=== PATIENT | female | born 2000 | race Hispanic/Latino ===

== ENCOUNTER → 2018-09-18 | Outpatient (REF) | payer OTHER | LOC: M SFHCLERA 16:44 | PROVIDERS: ATTEND Physician Assistant | DX: N39.0 Urinary tract infection, site not specified (principal) ==

== ENCOUNTER 2018-10-10 15:17 | Emergency (ER) | payer OTHER ==
[~2018-10-10] VITALS: Ht 157.5 cm; Wt 57.3 kg
[2018-10-10] MEDS ORDERED: PHEN200T22 PO (15:26)
[2018-10-10] MEDS ORDERED: NEXP1IMP SC (15:26)
[2018-10-10 17:17] VITALS: BP 121/58
[2018-10-10] MEDS ORDERED: CIPR-249 PO (17:23)
[2018-10-10] MEDS ORDERED: PYRI1TAB5 PO (17:23)
[2018-10-10] MEDS ORDERED: PHENAZOPYRIDINE 100 MG TAB PO ONE (17:30)
[2018-10-10] MEDS ORDERED: CIPROFLOXACIN 500 MG TAB PO ONE (17:30)
[2018-10-10 21:32] LABS: CHLAMYDIA DNA AMPLIFICATION NEGATIVE (NEGATIVE); GC DNA AMPLIFICATION NEGATIVE (NEGATIVE)
== END 2018-10-10 17:33 | disposition home or self-care (01) ==
LOC: M ED 15:17
DX: N30.90 Cystitis, unspecified without hematuria (principal); Z88.0 Allergy status to penicillin; Z79.3 Long term (current) use of hormonal contraceptives

== ENCOUNTER → 2019-01-06 | Outpatient (REF) | payer BC, OTHER ==
[~2019-01-06] MED LIST: CIPR-249 PO; NEXP1IMP SC; PHEN200T22 PO; PYRI1TAB5 PO
[2019-01-07 13:08] LABS: CHLAMYDIA DNA AMPLIFICATION NEGATIVE (NEGATIVE); GC DNA AMPLIFICATION NEGATIVE (NEGATIVE)
== END ==
LOC: M SFHCLERA 13:52
PROVIDERS: ATTEND Nurse Practitioner Family
DX: R30.0 Dysuria (principal)

== ENCOUNTER → 2019-05-02 | Outpatient (REF) | payer BC, OTHER ==
[2019-05-02 19:10] LABS: APPEARANCE, URINE CLEAR (CLEAR); BACTERIA, URINE AUTO NEGATIVE (NEGATIVE); BILIRUBIN, URINE AUTO NEGATIVE (NEGATIVE); BLOOD, URINE BLOOD NEGATIVE (NEGATIVE); COLOR, URINE YELLOW (YELLOW); GLUCOSE, URINE (UA) AUTO NEGATIVE (NEGATIVE); KETONE, URINE AUTO NEGATIVE (NEGATIVE); LEUKOCYTE ESTERASE, URINE AUTO NEGATIVE (NEGATIVE); NITRITE, URINE AUTO NEGATIVE (NEGATIVE); PROTEIN, URINE AUTO NEGATIVE (NEGATIVE); RBC, URINE AUTO 1 /HPF (0-3); SPECIFIC GRAVITY URINE AUTO 1.006 (1.002-1.035); SQUAMOUS EPITHELIAL CELL UR AU 0 /HPF (0-6); UROBILINOGEN, URINE AUTO 0.2 mg/dL (0.0-2.0); WBC, URINE AUTO 1 /HPF (0-3)
== END ==
LOC: M SMT 16:52
PROVIDERS: ATTEND Nurse Practitioner Family
DX: N39.0 Urinary tract infection, site not specified (principal)

== ENCOUNTER → 2019-05-05 | Outpatient (CLI) | payer BC, OTHER ==
--- NOTE | 2019-05-06 02:52 | REP ---
Clinical: Frequent urinary tract infection. Technique: Real time henry scale ultrasound examination using curved array transducer. Findings: Bilateral kidneys are normal in contour, size, echogenicity without hydronephrosis, nephrolithiasis, cystic or renal mass lesion. No perinephric fluid collection. Right kidney measures 10.1 x 5.6 x 4.5 cm. Left kidney measures 9.2 x 5.4 x 5.3 cm. Bladder is normal in appearance without wall thickening or mass lesion. Bilateral ureteral jets are identified. Prevoid bladder measures 341 ml. Postvoid bladder measures 20 ml. Postvoid residual equals 6%. Impression: Normal renal and bladder ultrasound. Electronically Signed by Loi Roa MD 05/06/2019 02:44 A
== END ==
LOC: M RAD 15:01
PROVIDERS: ATTEND Nurse Practitioner Family
DX: N39.0 Urinary tract infection, site not specified (principal)

== ENCOUNTER → 2019-11-04 | Outpatient (REF) | payer BC, OTHER ==
[~2019-11-04] MED LIST changes: +MACR100C43 PO
== END ==
LOC: M SFHCLERA 18:51
PROVIDERS: ATTEND Physician Assistant
DX: R30.0 Dysuria (principal)

== ENCOUNTER 2019-11-07 06:01 | Emergency (ER) | payer BC, OTHER ==
[~2019-11-07] VITALS: Ht 157.5 cm; Wt 62.8 kg
[~2019-11-07 06:01] MED LIST changes: -MACR100C43 PO
[2019-11-07 07:11] LABS: BASO # 0.1 10^3/uL (0.0-0.2); BASO % 0.9 % (0.0-1.0); EOS # 0.1 10^3/uL (0.0-0.5); EOS % 1.1 % (0.0-3.0); HEMATOCRIT 40.2 % (36.0-47.0); HEMOGLOBIN 13.1 g/dl (12.0-15.5); LYMPH # 1.9 10^3/uL (1.5-5.0); LYMPH % 33.2 % (24.0-44.0); MEAN CORPUSCULAR HEMOGLOBIN 28.5 pg (27.0-33.0); MEAN CORPUSCULAR HGB CONC 32.6 g/dl (32.0-36.5); MEAN CORPUSCULAR VOLUME 87.6 fl (80.0-96.0); MONO # 0.4 10^3/uL (0.0-0.8); MONO % 7.3 % (0.0-5.0); NEUTROPHILS # 3.2 10^3/uL (1.5-8.5); NEUTROPHILS % 57.3 % (36.0-66.0); PLATELET COUNT, AUTOMATED 256 10^3/uL (150-450); RED BLOOD COUNT 4.59 10^6/uL (4.00-5.40); WHITE BLOOD COUNT 5.6 10^3/uL (4.0-10.0)
[2019-11-07 07:19] LABS: APPEARANCE, URINE MANUAL HAZY (CLEAR); COLOR, URINE MANUAL ORANGE (YELLOW); PROTEIN, URINE MANUAL NEGATIVE (NEGATIVE); SPECIFIC GRAVITY,URINE MANUAL 1.015 (1.002-1.035)
[2019-11-07 07:20] LABS: BILIRUBIN, URINE MANUAL OBSCURED (NEGATIVE); BLOOD URINE MANUAL TRACE (NEGATIVE); GLUCOSE, URINE (UA) MANUAL NEGATIVE (NEGATIVE); KETONE, URINE MANUAL NEGATIVE (NEGATIVE); LEUKOCYTE ESTERASE, URINE MAN POSITIVE (NEGATIVE); NITRITE, URINE MANUAL OBSCURED (NEGATIVE); UROBILINOGEN, URINE MANUAL OBSCURED mg/dl (NORMAL)
[2019-11-07 07:24] LABS: WBC, URINE 30-40 /hpf (0-3)
[2019-11-07 07:25] LABS: BACTERIA, URINE MOD AMOUNT; HYALINE CAST, URINE NONE SEEN /lpf (0-1); MUCUS, URINE SMALL AMOUNT (NEGATIVE); SQUAMOUS EPITHELIAL CELL URINE MOD AMOUNT /hpf (SMALL AMT)
[2019-11-07 07:36] LABS: BLOOD UREA NITROGEN 11 MG/DL (7-18); CALCIUM LEVEL 9.2 MG/DL (8.5-10.1); CARBON DIOXIDE LEVEL 25 MEQ/L (21-32); CHLORIDE LEVEL 106 MEQ/L (98-107); CREATININE FOR GFR 0.82 MG/DL (0.55-1.30); GLOMERULAR FILTRATION RATE > 60.0 (>60); GLUCOSE, FASTING 100 MG/DL (70-100); SODIUM LEVEL 139 MEQ/L (136-145)
[2019-11-07 07:41] LABS: HCG, SERUM QUALITATIVE NEGATIVE (NEGATIVE)
[2019-11-07] MEDS ORDERED: MACR100C43 PO (08:26)
[2019-11-07 08:33] VITALS: BP 134/74
== END 2019-11-07 08:34 | disposition home or self-care (01) ==
LOC: M ED 06:01
DX: N39.0 Urinary tract infection, site not specified (principal); Z88.0 Allergy status to penicillin; Z79.899 Other long term (current) drug therapy

== ENCOUNTER 2019-11-19 18:42 | Inpatient (IN) | payer BC, OTHER ==
[~2019-11-19] VITALS: Ht 157.5 cm; Wt 61.4 kg
[~2019-11-19 18:42] MED LIST changes: +MACR100C43 PO
[2019-11-19 19:38] LABS: HEMATOCRIT 38.2 % (36.0-47.0); HEMOGLOBIN 12.8 g/dl (12.0-15.5); MEAN CORPUSCULAR HGB CONC 33.5 g/dl (32.0-36.5); MEAN CORPUSCULAR VOLUME 86.4 fl (80.0-96.0); PLATELET COUNT, AUTOMATED 267 10^3/uL (150-450); RED BLOOD COUNT 4.42 10^6/uL (4.00-5.40); WHITE BLOOD COUNT 5.9 10^3/uL (4.0-10.0)
[2019-11-19 20:00] LABS: AMPHETAMINES LEVEL URINE NEGATIVE (NEGATIVE); BARBITURATES URINE NEGATIVE (NEGATIVE); BENZODIAZEPINES URINE NEGATIVE (NEGATIVE); CANNABINOIDS URINE NEGATIVE (NEGATIVE); COCAINE METABOLITE URINE NEGATIVE (NEGATIVE); METHADONE URINE NEGATIVE (NEGATIVE); OPIATES URINE NEGATIVE (NEGATIVE); PHENCYCLIDINE URINE NEGATIVE (NEGATIVE)
[2019-11-19 20:03] LABS: HCG, SERUM QUALITATIVE NEGATIVE (NEGATIVE)
[2019-11-19 20:19] LABS: BLOOD UREA NITROGEN 9 MG/DL (7-18); CREATININE FOR GFR 0.81 MG/DL (0.55-1.30); GLUCOSE, FASTING 94 MG/DL (70-100)
[2019-11-19 20:20] LABS: ACETAMINOPHEN LEVEL < 2.0 UG/ML (10.0-30.0); ALBUMIN 4.4 GM/DL (3.2-5.2); ALT/SGPT 22 U/L (12-78); BILIRUBIN,DIRECT 0.1 MG/DL (0.0-0.2); BILIRUBIN,TOTAL 0.3 MG/DL (0.2-1.0); CALCIUM LEVEL 9.1 MG/DL (8.5-10.1); CARBON DIOXIDE LEVEL 28 MEQ/L (21-32); CHLORIDE LEVEL 108 MEQ/L (98-107); ETHYL ALCOHOL (ETHANOL) 0.018 % (0.000-0.010); GLOMERULAR FILTRATION RATE > 60.0 (>60); POTASSIUM SERUM 3.6 MEQ/L (3.5-5.1); SALICYLATE LEVEL < 1.7 MG/DL (5.0-30.0); SODIUM LEVEL 141 MEQ/L (136-145)
[2019-11-19] MEDS ORDERED: MOM 30ML SUSPENSION UDC PO PRN (21:00)
[2019-11-19] MEDS ORDERED: MAALOX 30 ML SUSP *UDC PO PRN (21:00)
[2019-11-19] MEDS ORDERED: ACETAMINOPHEN TAB 650MG DOSE (2X325MG) PO PRN (21:00)
[2019-11-19 21:52] VITALS: BP 143/81
[2019-11-19] MEDS: traZODone 50 MG TAB PO PRN (23:00)
[2019-11-20 06:22] VITALS: BP 136/78
[2019-11-20 16:00] VITALS: BP 133/65
[2019-11-20] MEDS ORDERED: hydrOXYzine 10 MG TAB PO PRN (16:15)
--- NOTE | 2019-11-20 16:15 | MHHPEPDOC ---
General Date Of Admission: Nov 19, 2019 Legal Status: 9.39 Chief Complaint "The stress piled up" History of Present Illness HISTORY OF THE PRESENT ILLNESS: Patient is a 19 -year-old , female, who, as per ED report: "Pt is [employer] x 2 years with no deployments, presents to ED accompanied by spouse, pt c/o increasing depression recently due to occupational stressors. Pt reports she is not happy with treatment by her [facility], is vague about complaints but states situation has been worsening there for some time. Pt adds that she lost her tuition assistance due to a failed PT session and no longer can continue going to school, adds "It's why I joined the [email or web address] to begin with". PT states "everything piling up" and has begun to have "fleeting" suicidal thoughts, denies any current plan but is afraid of what she may do. Pt denies prior attempts at self harm or psych admissions, states she just recently began going to [facility] but has not been satisfied with treatment there. Pt denies HI/AH/VH, denies any substance abuse issues, reports decreased sleep/appetite recently, poor concentration and low energy. Pt denies any intent or plan currently but states she has been "crying all the time and getting worse", admits to ongoing vague/fleeting SI. Pt states she is due to go into the field tomorrow". Psychiatric Review of Systems Depression (2 or more weeks): depressed mood, anhedonia, insomnia/hypersomnia, decreased energy, difficulty concentrating, appetite changes (low), suicidal thoughts (fleeting , more frequent in the past 2 weeks) Clarissa (4 or more days of): denies Psychosis: denies PTSD: denies Anxiety: gen/non-specific anxiety, situational anxiety, stressor related anxiety Anxiety/ 6 months or more of: restlessness, keyed up, difficulty concentrating, irritability, muscle tension, sleep disturbance Past Psychiatric History Previous Psychiatric Diagnosis: None Previous Psychiatric Admissions: Denies Suicide Attempts: Denies Psychiatric Follow-up: [facility] Psychiatric medications: Denies Past Medical History Medical Problems None Head Injury: No Seizures: No Hospitalizations: No Surgeries: No Family Medical/Psychiatric HX Medical Problems "I don't know" Psychiatric Disorders: Yes (Mom and GM have SAD) Addiction: No Suicide Attemps/Completions: No Addiction History alcohol (once/twice/month) Social History Childhood: "it wasn't bad". Grew up with her parents, had a brother, she has good relationship with them. She enjoyed going to school, she was neve diagnosed with learning disabilities. Abuse/Trauma: Denies Current Living Situation: [place] post Education: Finished HS Employment: [employer] Social Support: Her Legal: Denies Marital: , no children. Mental Status Examination General Appearance: well groomed, hospital scubs/clothing Build: average Demeanor: guarded Eye Contact: average Activity: anxious Behavior: cooperative, restless Speech: clear, rapid, spontaneous, normal volume Mood: depressed, anxious, irritable Affect: constricted, congruent, anxious Thought Process: logical/linear Thought Content (Delusions): none reported Thought Content (Other): none reported Thought Content (Aggressive): none reported Perception (Hallucinations): none reported Perception (Other): none reported Cognition (Impairment of): none reported Cognition(Intelligence Est.): average Oriented: Awake, Alert, Oriented times three Insight: fair Judgment: Fair Psychosis: Denies Diagnoses 1. Unspecified depressive disorder 2. MARICEL A-FIB/CHADSVASC A-FIB History Current/History of A-Fib/PAF?: No Current PO Anticoag Therapy: No Age/Risk Factor Scoring CHADSVASC: CHADSVASC Response (Comments) Value Age Risk Factor Age < 65 years old 0 Gender Risk Factor Female 1 Hx of CHF No 0 Hx of HTN No 0 Hx of Stroke/TIA/or VTE No 0 Hx of Diabetes No 0 Hx of Vascular Disease No 0 Total 1 Treatment Treatment ordered: NONE Reason Anticoagulant not given: Not indicated/[id number] Assessment The patient is very anxious, has cognitive distortions, feels unsupported in the [employer], she is overwhelmed, guarded. She will be started on Zoloft 50 gs PO QHS and Hydroxyzine 10 mgs PO Q4HP for anxiety and agitation. Initial Treatment Plan 1. Patient was admitted on a [9.39] status. 2. Complete history was obtained. 3. With patients permission, family will be contacted and database will be expanded. 4. Patients medication regimen will be reviewed and changed accordingly. 5. Patient will be provided with protected environment. 6. Patient will be treated with individual, group, and milieu therapies. 7. Patient will receive supportive psych-education. 8. Discharge planning will commence immediately. 9. Outpatient follow-up treatment will be strongly recommended. 10. The initial treatment plan will focus initially on: * Depression. * Anxiety * Ineffective coping * Risk for suicide. ESTIMATED LENGTH OF STAY: 3-5 DAYS. TIME SPENT COUNSELING AND COORDINATING INITIAL CARE: 60 minutes. Vital Signs Vital Signs Date Time Temp Pulse Resp B/P (MAP) Pulse Ox O2 Delivery O2 Flow Rate FiO2 11/20/19 06:22 99.2 69 16 136/78 (97) Room Air 11/19/19 21:52 100 Laboratory Data 24H Labs Laboratory Tests 2 11/19/19 19:16: Nucleated Red Blood Cells % (auto) 0.0, Anion Gap 5L, Glomerular Filtration Rate > 60.0, Calcium Level 9.1, Total Bilirubin 0.3, Direct Bilirubin 0.1, Aspartate Amino Transf (AST/SGOT) 16, Alanine Aminotransferase (ALT/SGPT) 22, Alkaline Phosphatase 86, Total Protein 8.0, Albumin 4.4, Albumin/Globulin Ratio 1.22, Thyroid Stimulating Hormone (TSH) 1.080, Human Chorionic Gonadotropin, Qual NEGATIVE, Salicylates Level < 1.7L, Urine Opiates Screen NEGATIVE, Urine Methadone Screen NEGATIVE, Acetaminophen Level < 2.0L, Urine Barbiturates Screen NEGATIVE, Urine Phencyclidine Screen NEGATIVE, Urine Amphetamines Screen NEGATIVE, Urine Benzodiazepines Screen NEGATIVE, Urine Cocaine Metabolite Screen NEGATIVE, Urine Cannabinoids Screen NEGATIVE, Ethyl Alcohol Level 0.018H CBC/BMP Laboratory Tests 11/19/19 19:16 Medications Scheduled Etonogestrel (Nexplanon) 68 Mg Imp, 68 MG SC DAILY, (Reported) IMPLANT IN LEFT ARM Allergies Coded Allergies: Penicillins (Verified Allergy, Unknown, rash as a child, 11/19/19) YURIDIA STORM MD Nov 20, 2019 16:08
--- NOTE | 2019-11-20 18:52 | HPEPDOC ---
[facility] Medical History & Physical Date of Admission Nov 20, 2019 Date of Service: Nov 20, 2019 Attending Physician: ALLYSSA MCNEIL MD History and Physical CHIEF COMPLAINT: Depression HISTORY OF PRESENT ILLNESS: 19-year-old female with no significant past medical history is admitted to inpatient mental health unit for worsening depression and suicidal thoughts. Patient reports increased stress related to work and personal life, which has been accumulating recently to the point where she was having fleeting thoughts of suicide, no plan, has never attempted in the past. Brought herself to the hospital before her symptoms got worse and she acted on her thoughts. Patient has no past medical history, denies taking any medication at this time. Patient denies any shortness of breath, chest pain, nausea, vomiting, abdominal diarrhea. 10 point review of system is negative except for above PAST MEDICAL HISTORY: 1. None. PAST SURGICAL HISTORY: 1. None. SOCIAL HISTORY: Denies smoking. Drinks Alcohol once a month. Denies drug use FAMILY HISTORY: No family history of cancer or heart disease ALLERGIES: Please see below HOME MEDICATIONS: Please see below. PHYSICAL EXAMINATION: VITAL SIGNS: Please see below. GENERAL: No distress HEENT: Normocephalic, atraumatic, moist mucous membranes NECK: Supple CARDIOVASCULAR EXAMINATION: S1, S2, no murmurs RESPIRATORY EXAMINATION: Clear to auscultation, no wheezing ABDOMINAL EXAMINATION: Soft, nontender, nondistended, positive bowel sounds EXTREMITIES: Range of motion intact SKIN: No rash NEUROLOGICAL EXAMINATION: Alert and oriented 3, no focal deficits PSYCHIATRIC EXAMINATION: Calm and cooperative LABORATORY: See below MICROBIOLOGY: Please see below. ASSESSMENT: 19-year-old female with no significant past medical history is admitted to inpatient mental health unit for worsening depression and suicidal ideation. PLAN: 1. Depression with suicidal ideation. Management as per primary team Patient has no active medical issues at this time, please reconsult if needed. Vital Signs Vital Signs Date Time Temp Pulse Resp B/P (MAP) Pulse Ox O2 Delivery O2 Flow Rate FiO2 11/20/19 06:22 99.2 69 16 136/78 (97) Room Air 11/19/19 21:52 100 Laboratory Data Labs 24H Laboratory Tests 2 11/19/19 19:16: Nucleated Red Blood Cells % (auto) 0.0, Anion Gap 5L, Glomerular Filtration Rate > 60.0, Calcium Level 9.1, Total Bilirubin 0.3, Direct Bilirubin 0.1, Aspartate Amino Transf (AST/SGOT) 16, Alanine Aminotransferase (ALT/SGPT) 22, Alkaline Phosphatase 86, Total Protein 8.0, Albumin 4.4, Albumin/Globulin Ratio 1.22, Thyroid Stimulating Hormone (TSH) 1.080, Human Chorionic Gonadotropin, Qual NEGATIVE, Salicylates Level < 1.7L, Urine Opiates Screen NEGATIVE, Urine Methadone Screen NEGATIVE, Acetaminophen Level < 2.0L, Urine Barbiturates Screen NEGATIVE, Urine Phencyclidine Screen NEGATIVE, Urine Amphetamines Screen N EGATIVE, Urine Benzodiazepines Screen NEGATIVE, Urine Cocaine Metabolite Screen NEGATIVE, Urine Cannabinoids Screen NEGATIVE, Ethyl Alcohol Level 0.018H CBC/BMP Laboratory Tests 11/19/19 19:16 Home Medications Scheduled Etonogestrel (Nexplanon) 68 Mg Imp, 68 MG SC DAILY IMPLANT IN LEFT ARM Allergies Coded Allergies: Penicillins (Verified Allergy, Unknown, rash as a child, 11/19/19) A-FIB/CHADSVASC A-FIB History Current/History of A-Fib/PAF?: No Age/Risk Factor Scoring CHADSVASC: CHADSVASC Response (Comments) Value Age Risk Factor Age < 65 years old 0 Gender Risk Factor Female 1 Hx of CHF No 0 Hx of HTN No 0 Hx of Stroke/TIA/or VTE No 0 Hx of Diabetes No 0 Hx of Vascular Disease No 0 Total 1 ALLYSSA MCNEIL MD Nov 20, 2019 18:52
[2019-11-20] MEDS: SERTRALINE HCL 50 MG TAB PO SCH (20:31)
[2019-11-20] MEDS: traZODone 50 MG TAB PO PRN (21:52)
[2019-11-21 06:39] VITALS: BP 132/65
--- NOTE | 2019-11-21 08:35 | MHIPNPDOC ---
[facility] Progress Note Progress Note Briseida Wheeler Inpatient Progress Note Briseida Liam Select Gender MRN: N/A Date of : MM/DD/YYYY Date of Service: 11/21/2019 History of Present Illness Patient is a 19 -year-old , female, who, as per ED report: "Pt is [employer] x 2 years with no deployments, presents to ED accompanied by spouse, pt c/o increasing depression recently due to occupational stressors. Pt reports she is not happy with treatment by her [facility], is vague about complaints but states situation has been worsening there for some time. Pt adds that she lost her tuition assistance due to a failed PT session and no longer can continue going to school, adds "It's why I joined the [employer] to begin with". PT states "everything piling up" and has begun to have "fleeting" suicidal thoughts, denies any current plan but is afraid of what she may do. Pt denies prior attempts at self harm or psych admissions, states she just recently began going to [facility] but has not been satisfied with treatment there. Pt denies HI/AH/VH, denies any substance abuse issues, reports decreased sleep/appetite recently, poor concentration and low energy. Pt denies any intent or plan currently but states she has been "crying all the time and getting worse", admits to ongoing vague/fleeting SI. Pt states she is due to go into the field tomorrow". Interval History Narrative: The patient has met with today. She reports she is doing better and that she feels less worrisome about her situation. Affective: The patient reports improved being low mood, better focus and less loss of interest. Psychotic: Denies any symptoms at this time. Anxiety: Improving situational concerns. Eating and sleeping behaviors: Within normal limits. Group Attendance: Attends groups frequently. Medication Side effects: See ROS below Behavioral problems/significant events overnight: None reported. Staff Report: The patient's somewhat guarded at times, but has been otherwise amenable. Review Of Systems General: Denies fever or appetite changes Cardiovascular: Denies Chest pain or palpations GI: Denies Nausea, vomiting, or bowel changes Respiratory: Denies shortness of breath or cough Neuro: Denies dizziness, tremors Derm: Denies any rashes or pruritus : Denies any dysuria or urinary problems MSK: Denies any muscle tightness or stiffness HEENT: Denies any vision changes or headaches Psychotherapy None on this visit. Vital Signs Reviewed. Mental Status Examination General: Well dressed with good hygiene Speech: Spontaneous and fluid Thought processes: Linear and logical MSK: Smooth and coordinated gait, no signs of tremors or involuntary orofacial movements Thought content: Future orientated Abstract reasoning, and computation: Intact Description of associations: Intact Description of abnormal or psychotic thoughts: Denies any suicidal or homicidal ideation. Denies any auditory or visual hallucinations. Does not appear to be responding to internal stimuli. Does not appear to be endorsing any bizarre or paranoid ideation. Judgment: fair Insight: fair Orientation: Alert and orientated 3 Cognition: Grossly normal Recent and remote memory: Intact Attention span and concentration: Intact Fund of knowledge: Adequate Mood: "okay" Affect: Euthymic with a full range Diagnoses Adjustment disorder with disruption of mood and conduct. Concerned for malingering. Assessment and Plan Adjustment disorder: Continue sertraline 50 mg daily. Concerned for malingering: Patient does appear to have precipitous resolution of her symptoms does appear during meeting to be focused on attempting to avoid having to go to the field. Disposition Discharge tomorrow to chain of command. Time Spent 15 minutes. Vital Signs Vital Signs Date Time Temp Pulse Resp B/P (MAP) Pulse Ox O2 Delivery O2 Flow Rate FiO2 11/21/19 06:39 98.9 73 16 132/65 (87) Room Air 11/19/19 21:52 100 Current Medications Current Medications Medications (Trade) Dose Ordered Sig/Milan Route PRN Reason Start Time Stop Time Status Last Admin Dose Admin Acetaminophen (Tylenol Tab) 650 mg Q6HP PRN PO HEADACHE or DISCOMFORT 11/19/19 21:00 Al Hydrox/Mg Hydrox/Simethicone (Mylanta) 30 ml Q4HP PRN PO HEARTBURN/INDIGESTION 11/19/19 21:00 Home Med (Med Rec Complete!) ASDIRECTED XX 11/19/19 19:30 11/19/19 19:18 DC Hydroxyzine HCl (Atarax) 10 mg Q4HP PRN PO ANXIETY/AGITATION 11/20/19 16:15 Magnesium Hydroxide (Milk Of Magnesia) 30 ml DAILYPRN PRN PO CONSTIPATION 11/19/19 21:00 Sertraline HCl (Zoloft) 50 mg QHS PO 11/20/19 21:00 11/20/19 20:31 Trazodone HCl (Desyrel) 50 mg QHSP PRN PO INSOMNIA 11/19/19 21:00 11/20/19 21:52 Allergies Coded Allergies: Penicillins (Verified Allergy, Unknown, rash as a child, 11/19/19) LAUREN MTZ DO Nov 21, 2019 08:35
[2019-11-21] MEDS ORDERED: SERT50TA29 PO (08:57)
[2019-11-21 15:46] VITALS: BP 142/85
[2019-11-21] MEDS: SERTRALINE HCL 50 MG TAB PO SCH (20:14)
[2019-11-21] MEDS: traZODone 50 MG TAB PO PRN (22:21)
[2019-11-22 06:45] VITALS: BP 141/63
--- NOTE | 2019-11-22 07:35 | MHDSPDOC ---
[facility] Discharge Summary Discharge Summary DATE OF ADMISSION: Nov 19, 2019 at 20:56 DATE OF DISCHARGE: 11/22/19 Briseida Wheeler Discharge Briseida Wheeler Select Gender MRN: N/A Date of : MM/DD/YYYY Date of Service: 11/23/2019 Diagnoses Adjustment disorder with disruption of mood and conduct. Concerned for malingering. History of Present Illness Patient is a 19 -year-old , female, who, as per ED report: "Pt is [employer] x 2 years with no deployments, presents to ED accompanied by spouse, pt c/o increasing depression recently due to occupational stressors. Pt reports she is not happy with treatment by her [facility], is vague about complaints but states situation has been worsening there for some time. Pt adds that she lost her tuition assistance due to a failed PT session and no longer can continue going to school, adds "It's why I joined the [employer] to begin with". PT states "everything piling up" and has begun to have "fleeting" suicidal thoughts, denies any current plan but is afraid of what she may do. Pt denies prior attempts at self harm or psych admissions, states she just recently began going to [facility] but has not been satisfied with treatment there. Pt denies HI/AH/VH, denies any substance abuse issues, reports decreased sleep/appetite recently, poor concentration and low energy. Pt denies any intent or plan currently but states she has been "crying all the time and getting worse", admits to ongoing vague/fleeting SI. Pt states she is due to go into the field tomorrow". Consultants Involved Hospitalist/PCP screening Treatment and Progress On The Unit The patient was admitted to the inpatient mental health unit and subsequently started on sertraline. She did well on sertraline increasing to a sufficient dos e of her antidepressant. She did well on our unit, consistently denied any suicidal or homicidal ideation after she had arrived to our unit. She remained in behavioral control and cooperated well with treatment without any concerns from the treatment team. Discharge Assessment The patient is a 19-year-old woman with a history of likely adjustment and possible secondary gain related to avoiding being in the field, presents after making vague suicidal statements. She's treated with a low dose of an antidepre ssant in a supportive environment that appears to treat her symptoms well. The patient at the time of discharge did not meet criteria for involuntary admission/extension due to consistently denying suicidal and homicidal ideation through the admission and to the discharge, having a normal mental status exam on last exam prior to discharge, They are engaged in the discharge process, as well as being friendly and amenable in behavioral control and havent been engaging in any observed concerning behavior or ideation recently. They decline voluntary extension/admission at this time and must be discharged in good aleisha, as Im unable to make a case for holding the patient against their will. They may have historical risk factors of admissions and other interactions with psychiatry however, those are not modifiable from a clinical perspective. The patient will need to be discharged in good aleisha. Mental Status Examination Please see my last note for mental status exam for discharge as patient was discharged before [id number] could be completed. Follow Up The social work team worked during the predischarge meeting in order to evaluate for further issues of lethality address them fully before discharge. They worked on safety planning with the patient's family members in order to ensure that the patient will have a safe and effective discharge. Time Spent The amount of time spent in the coordination of care for this patient was approximately 40 minutes. Vital Signs/I&Os Vital Signs Date Time Temp Pulse Resp B/P (MAP) Pulse Ox O2 Delivery O2 Flow Rate FiO2 11/22/19 06:45 99.6 75 18 141/63 (89) 11/21/19 06:39 Room Air 11/19/19 21:52 100 Medications Scheduled Etonogestrel (Nexplanon) 68 Mg Imp, 68 MG SC DAILY, (Reported) IMPLANT IN LEFT ARM Sertraline HCl (Sertraline HCl) 50 Mg Tablet, 50 MG PO QHS for mood for 7 Days, #7 Allergies Coded Allergies: Penicillins (Verified Allergy, Unknown, rash as a child, 11/19/19) LAUREN MTZ DO Nov 22, 2019 07:35
[2019-11-22] MEDS ORDERED: OSELTAMIVIR PHOSPHATE 75 MG CAP (TAMIFLU) PO SCH (09:00)
[2019-11-23] MEDS ORDERED: SERT50TA29 PO (12:22)
== END 2019-11-22 12:05 | disposition home or self-care (01) | DRG 882 ==
LOC: M ED 18:42 → M ED INP 20:56 → M PSY 21:38
PROVIDERS: ADMIT Psychiatry & Neurology Psychiatry; ATTEND Psychiatry & Neurology Addiction Medicine
DX: F43.25 Adjustment disorder with mixed disturbance of emotions and conduct (principal); R45.851 Suicidal ideations; Z76.5 Malingerer [conscious simulation]; Z88.0 Allergy status to penicillin; Z79.899 Other long term (current) drug therapy

== ENCOUNTER 2019-12-20 17:55 | Inpatient (IN) | payer BC, OTHER ==
[~2019-12-20] VITALS: Ht 157.5 cm; Wt 63.7 kg
[~2019-12-20 17:55] MED LIST changes: +SERT50TA29 PO
[2019-12-20] MEDS ORDERED: LEXA1TAB PO ×2 (18:01→21:56)
[2019-12-20 19:38] LABS: HEMOGLOBIN 13.2 g/dl (12.0-15.5); MEAN CORPUSCULAR HEMOGLOBIN 29.1 pg (27.0-33.0); MEAN CORPUSCULAR VOLUME 88.1 fl (80.0-96.0); PLATELET COUNT, AUTOMATED 284 10^3/uL (150-450); RED BLOOD COUNT 4.54 10^6/uL (4.00-5.40); WHITE BLOOD COUNT 6.9 10^3/uL (4.0-10.0)
[2019-12-20 19:41] LABS: AMPHETAMINES LEVEL URINE NEGATIVE (NEGATIVE); BARBITURATES URINE NEGATIVE (NEGATIVE); BENZODIAZEPINES URINE NEGATIVE (NEGATIVE); CANNABINOIDS URINE NEGATIVE (NEGATIVE); COCAINE METABOLITE URINE NEGATIVE (NEGATIVE); METHADONE URINE NEGATIVE (NEGATIVE); OPIATES URINE NEGATIVE (NEGATIVE); PHENCYCLIDINE URINE NEGATIVE (NEGATIVE)
[2019-12-20 19:45] LABS: HCG, SERUM QUALITATIVE NEGATIVE (NEGATIVE)
[2019-12-20 19:53] LABS: ALBUMIN 4.1 GM/DL (3.2-5.2); ALT/SGPT 19 U/L (12-78); BILIRUBIN,DIRECT 0.1 MG/DL (0.0-0.2); BILIRUBIN,TOTAL 0.4 MG/DL (0.2-1.0); BLOOD UREA NITROGEN 8 MG/DL (7-18); CALCIUM LEVEL 8.9 MG/DL (8.5-10.1); CARBON DIOXIDE LEVEL 29 MEQ/L (21-32); CHLORIDE LEVEL 105 MEQ/L (98-107); CREATININE FOR GFR 0.75 MG/DL (0.55-1.30); ETHYL ALCOHOL (ETHANOL) < 0.003 % (0.000-0.010); GLOMERULAR FILTRATION RATE > 60.0 (>60); GLUCOSE, FASTING 78 MG/DL (70-100); POTASSIUM SERUM 3.8 MEQ/L (3.5-5.1); SALICYLATE LEVEL < 1.7 MG/DL (5.0-30.0); SODIUM LEVEL 139 MEQ/L (136-145); TOTAL PROTEIN 7.8 GM/DL (6.4-8.2)
[2019-12-20 19:54] LABS: ACETAMINOPHEN LEVEL < 2.0 UG/ML (10.0-30.0)
[2019-12-20] MEDS ORDERED: MOM 30ML SUSPENSION UDC PO PRN (21:15)
[2019-12-20] MEDS ORDERED: MAALOX 30 ML SUSP *UDC PO PRN (21:15)
[2019-12-20] MEDS ORDERED: ACETAMINOPHEN TAB 650MG DOSE (2X325MG) PO PRN (21:15)
[2019-12-20] MEDS ORDERED: PHEN-500 PO (21:56)
[2019-12-20] MEDS ORDERED: METH-855 PO (21:56)
[2019-12-21] VITALS (7 sets, daily range): BP systolic 129–145; BP diastolic 76–82
[2019-12-21] MEDS ORDERED: SERTRALINE HCL 25 MG TABLET PO ONE (09:30)
[2019-12-21] MEDS ORDERED: hydrOXYzine 10 MG TAB PO PRN (09:30)
--- NOTE | 2019-12-21 09:39 | MHHPEPDOC ---
General Date Of Admission: Dec 20, 2019 Legal Status: 9.39 Chief Complaint "I was having thoughts of suicide." History of Present Illness HISTORY OF THE PRESENT ILLNESS: Patient is a 19 -year-old , AD, female, with a history of depression and anxiety admitted to [facility] 11/20/2019 for SI who b rought to ED by her due to pt endorsing fleeting suicidal thoughts and no plan. Per ED , pt endorsed feeling emotional overwhelmed cause her to have thoughts of suicide with no plan due to being bored at home with nothing to do due to COVID19 pandemic. She did state that even though she doesn't like her job in the [employer] and wants to get out that things have been going well at work for the past month. Pt endorsed avolition and anhedonia in the ED. Psychiatric Review of Systems Depression (2 or more weeks): depressed mood, anhedonia, difficulty concent rating, suicidal thoughts Clarissa (4 or more days of): denies Psychosis: denies PTSD: denies Anxiety: situational anxiety, stressor related anxiety Anxiety/ 6 months or more of: easily fatigued Past Psychiatric History Previous Psychiatric Diagnosis: depression Previous Psychiatric Admissions: [facility] 11/20/2019 for depression and SI Suicide Attempts: denies Psychiatric Follow-up: [facility]. Psychiatric medications: vistaril 10mg tid prn anxiety Past Medical History Medical Problems healthy adult Head Injury: No Seizures: No Hospitalizations: No Surgeries: No Family Medical/Psychiatric HX Medical Problems noncontributory Psychiatric Disorders: Yes (Mom and GM have SAD) Addiction: No Suicide Attemps/Completions: No Addiction History nicotine, alcohol (once/twice/month, endorses recent binge drinking) Social History Childhood: "it wasn't bad". Grew up with her parents, had a brother, she has good relationship with them. She enjoyed going to school, she was neve diagnosed with learning disabilities. Abuse/Trauma: Denies Current Living Situation: Lives on [place] with her Education: Finished HS Employment: [employer] Social Support: Her Legal: Denies Marital: , no children. Mental Status Examination General Appearance: well groomed, appears stated age, hospital scubs/clothing Build: average Demeanor: average Eye Contact: average Activity: average, anxious Behavior: cooperative Speech: clear, spontaneous, reg/rate,rhythm,volume Mood: euthymic, anxious Mood "depressed" Affect: full, appropriate, anxious Thought Process: logical/linear, depressed, intact Thought Content (Delusions): none reported, denies SI, HI, AVH Thought Content (Other): none reported, appropriate Thought Content (Aggressive): none reported Perception (Hallucinations): none reported Perception (Other): none reported Cognition (Impairment of): none reported Cognition(Intelligence Est.): average Oriented: Awake, Alert, Oriented times three Insight: fair Judgment: Fair Psychosis: Denies Diagnoses Depression unspecified R/o substance induce mood d/o secondary alcohol alcohol use d/O A-FIB/CHADSVASC A-FIB History Current/History of A-Fib/PAF?: No Assessment Pt seen and states she here b/c she was having thoughts of harming herself and binge drinking alcohol withdrawal. States she feels "alright" today but states when she has anxious and depressive thoughts. States she's unsure if her lexapro is beneficial or not. States she had been on zoloft for roughly a week in the past and is willing to try it again and see if it's more beneficial then her lexapro. States she doesn't like her job in the and that it "contributes" to her depressive thoughts. Denies SI/HI, hallucinations, delusions today. Feels safe here. Initial Treatment Plan 1. Patient was admitted on a 9.39 status. 2. Complete history was obtained. 3. With patients permission, family will be contacted and database will be expanded. 4. Patients medication regimen will be reviewed and changed accordingly. 5. Patient will be provided with protected environment. 6. Patient will be treated with individual, group, and milieu therapies. 7. Patient will receive supportive psych-education. 8. Discharge planning will commence immediately. 9. Outpatient follow-up treatment will be strongly recommended. 10. The initial treatment plan will focus initially on: * Depression. * Risk for suicide. 11. zoloft 25mg daily and vistaril 10mg q4hr prn anxiety ESTIMATED LENGTH OF STAY: 3-5 DAYS. TIME SPENT COUNSELING AND COORDINATING INITIAL CARE: 60 minutes. Vital Signs Vital Signs Date Time Temp Pulse Resp B/P (MAP) Pulse Ox O2 Delivery O2 Flow Rate FiO2 12/21/19 00:30 98.0 69 16 145/76 (99) Room Air 12/20/19 22:48 98 Laboratory Data 24H Labs Laboratory Tests 2 12/20/19 19:01: Nucleated Red Blood Cells % (auto) 0.0, Anion Gap 5L, Glomerular Filtration Rate > 60.0, Calcium Level 8.9, Total Bilirubin 0.4, Direct Bilirubin 0.1, Aspartate Amino Transf (AST/SGOT) 23, Alanine Aminotransferase (ALT/SGPT) 19, Alkaline Phosphatase 103, Total Protein 7.8, Albumin 4.1, Albumin/Globulin Ratio 1.11, Thyroid Stimulating Hormone (TSH) 1.620, Human Chorionic Gonadotropin, Qual NEGATIVE, Salicylates Level < 1.7L, Urine Opiates Screen NEGATIVE, Urine Methadone Screen NEGATIVE, Acetaminophen Level < 2.0L, Urine Barbiturates Screen NEGATIVE, Urine Phencyclidine Screen NEGATIVE, Urine Amphetamines Screen NEGATIVE, Urine Benzodiazepines Screen NEGATIVE, Urine Cocaine Metabolite Screen NEGATIVE, Urine Cannabinoids Screen NEGATIVE, Ethyl Alcohol Level < 0.003 CBC/BMP Laboratory Tests 12/20/19 19:01 Medications Scheduled Escitalopram Oxalate (Lexapro) 10 Mg Tablet, 10 MG PO DAILY, (Reported) Etonogestrel (Nexplanon) 68 Mg Imp, 68 MG SC ASDIRECTED, (Reported) IMPLANTED IN JANUARY 2019 Methenamine Hippurate (Methenamine Hippurate) 1 Gm Tablet, 1 GM PO BID, (Reported) Scheduled PRN Phenazopyridine HCl (Phenazopyridine HCl) 100 Mg Tablet, 100 MG PO TID PRN for PAIN, (Reported) Allergies Coded Allergies: Penicillins (Verified Allergy, Unknown, rash as a child, 11/19/19) ERLINDA MARSH DO Dec 21, 2019 9:39 am
--- NOTE | 2019-12-21 10:38 | CR.PDOC ---
General Date of Consultation: Dec 21, 2019 Referring Provider: ERLINDA MARSH DO Consultation TIME OF SERVICE: 7:50 AM REASON FOR CONSULT: Medical comanagement HISTORY OF PRESENT ILLNESS: This is a 19-year-old female was admitted to [facility] for management of suicidal ideation. Apparently she stopped taking her Lexapro about 2 days ago because she felt like there was no difference whether she took the medication or not. The patient has been feeling overwhelmed and bored because of the COVID pandemic and recommendations to intermediate in place. Currently she denies having chest pain, shortness of breath, fever, headaches, cough, abdominal pain, nausea, vomiting, diarrhea, or any other acute complaints. She had some difficulty sleeping last night. REVIEW OF SYSTEMS: 12 point review of systems negative except as listed in HPI PAST MEDICAL/ SURGICAL HISTORY: Recurrent UTIs. 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 She grew up in [place] [facility] and has been living in the area for about 2 years She doesn't smoke. She drinks 5-6 alcoholic beverages per day. She denies having headaches, tremors or seizures. If she doesn't drink. She denies recreational drug use FAMILY HISTORY: She denies having any family history of medical problems ALLERGIES: Please see below. HOME MEDICATIONS: Please see below. PHYSICAL EXAMINATION: Vital Signs Date Time Temp Pulse Resp B/P (MAP) Pulse Ox O2 Delivery O2 Flow Rate FiO2 12/21/19 11:40 88 132/82 12/21/19 00:30 98.0 69 16 145/76 (99) Room Air 12/20/19 22:48 98.4 84 18 144/71 (95) 98 12/20/19 19:05 12/20/19 17:56 99.3 104 16 147/73 (97) 98 Room Air GEN: well-nourished / well developed/ NAD INTEGUMENT: not flushed/ has multiple tattoos on her lower arms HEENT: NCAT / lips acyanotic /mucus membranes moist and pink CVS: RRR/NMR LUNGS: / lungs are clear to auscultation bilaterally on room air MSK/EXTREMITIES: Gait is normal without walking aids NEURO: CN 2-12 are grossly intact / speech is not dysarthric PSYCH: alert and oriented to person place and time/ able to understand and follow all commands LABORATORY DATA: Laboratory Tests 12/20/19 19:01 Nucleated Red Blood Cells % (auto) 0.0, Anion Gap 5L, Glomerular Filtration Rate > 60.0, Calcium Level 8.9, Total Bilirubin 0.4, Direct Bilirubin 0.1, Aspartate Amino Transf (AST/SGOT) 23, Alanine Aminotransferase (ALT/SGPT) 19, Alkaline Phosphatase 103, Total Protein 7.8, Albumin 4.1, Albumin/Globulin Ratio 1.11, Thyroid Stimulating Hormone (TSH) 1.620, Human Chorionic Gonadotropin, Qual NEGATIVE, Salicylates Level < 1.7L, Urine Opiates Screen NEGATIVE, Urine Methadone Screen NEGATIVE, Acetaminophen Level < 2.0L, Urine Barbiturates Screen NEGATIVE, Urine Phencyclidine Screen NEGATIVE, Urine Amphetamines Screen NEGATIVE, Urine Benzodiazepines Screen NEGATIVE, Urine Cocaine Metabolite Screen NEGATIVE, Urine Cannabinoids Screen NEGATIVE, Ethyl Alcohol Level < 0.003 ASSESSMENT: Ms. Wheeler is a 19-year-old with a history of depression and alcohol abuse who was admitted to [facility] for management of suicidal ideation; we were consulted for medical comanagement. PLAN: 1. Depression with suicidal ideation - plan per primary team 2. Recurrent UTIs - resume Pyridium 3. Insomnia? - Rozerem when necessary 5. Alcohol abuse - Ativan, thiamine, multivitamin and folic acid per CIWA protocol 6. Elevated blood pressure. Possibly due to alcohol withdrawal. Unlikely as she has hypertension. - Continue to monitor vitals DVT PROPHYLAXIS: n/a because she is ambulatory Thank you for consulting us. We will continue to follow the patient with you Allergies Coded Allergies: Penicillins (Verified Allergy, Unknown, rash as a child, 11/19/19) Home Medications Scheduled Escitalopram Oxalate (Lexapro) 10 Mg Tablet, 10 MG PO DAILY, (Reported) Etonogestrel (Nexplanon) 68 Mg Imp, 68 MG SC ASDIRECTED, (Reported) IMPLANTED IN JANUARY 2019 Methenamine Hippurate (Methenamine Hippurate) 1 Gm Tablet, 1 GM PO BID, (Reported) Scheduled PRN Phenazopyridine HCl (Phenazopyridine HCl) 100 Mg Tablet, 100 MG PO TID PRN for PAIN, (Reported) DISHA BALLESTEROS MD Dec 21, 2019 10:38
[2019-12-21] MEDS ORDERED: PHENAZOPYRIDINE 100 MG TAB PO PRN (10:45)
[2019-12-21] MEDS ORDERED: LORazepam 2 MG TAB PO PRN (10:45)
[2019-12-21] MEDS: MULTIVITAMINS/MINERALS THERAP 1 TAB PO SCH (11:38)
[2019-12-21] MEDS: FOLIC ACID 1 MG TAB PO SCH (11:38)
[2019-12-21] MEDS: THIAMINE 100 MG TAB PO SCH ×2 (11:38→21:00)
[2019-12-21] MEDS: RAMELTEON 8 MG TAB (ROZEREM) PO SCH (21:00)
[2019-12-21] MEDS: traZODone 50 MG TAB PO PRN (21:00)
[2019-12-22 06:18] VITALS: BP 108/53
[2019-12-22 07:04] VITALS: BP 108/53
[2019-12-22] MEDS: THIAMINE 100 MG TAB PO SCH ×2 (08:51→20:30)
[2019-12-22] MEDS: MULTIVITAMINS/MINERALS THERAP 1 TAB PO SCH (08:51)
[2019-12-22] MEDS: SERTRALINE HCL 25 MG TABLET PO SCH (08:52)
[2019-12-22] MEDS: FOLIC ACID 1 MG TAB PO SCH (09:04)
--- NOTE | 2019-12-22 09:17 | MHIPNPDOC ---
[facility] Progress Note Progress Note DATE OF SERVICE: 12/22/19 HISTORY: Patient is a 19 -year-old , AD, female, with a history of depression and anxiety admitted to [facility] 11/20/2019 for SI who brought to ED by her due to pt endorsing fleeting suicidal thoughts and no plan. Per ED , pt endorsed feeling emotional overwhelmed cause her to have thoughts of suicide with no plan due to being bored at home with nothing to do due to COVID19 pandemic. She did state that even though she doesn't like her job in the [employer] and wants to get out that things have been going well at work for the past month. Pt endorsed avolition and anhedonia in the ED. Pt seen and states she here b/c she was having thoughts of harming herself and binge drinking alcohol withdrawal. States she feels "alright" today but states when she has anxious and depressive thoughts. States she's unsure if her lexapro is beneficial or not. States she had been on zoloft for roughly a week in the past and is willing to try it again and see if it's more beneficial then her lexapro. States she doesn't like her job in the and that it "contributes" to her depressive thoughts. Denies SI/HI, hallucinations, delusions today. Feels safe here. VITAL SIGNS: See below. NEW TEST RESULTS: See below. CURRENT MEDICATIONS: See below. MENTAL STATUS EXAMINATION: General Appearance: well groomed, appears stated age, hospital scrubs/clothing Build: average Demeanor: average Eye Contact: average Activity: average Behavior: cooperative Speech: clear, spontaneous, reg/rate,rhythm,volume Mood: euthymic Mood "fine" Affect: full, appropriate Thought Process: logical/linear, less depressed, intact Thought Content (Delusions): none reported, denies SI, HI, AVH Thought Content (Other): none reported, appropriate Thought Content (Aggressive): none reported Perception (Hallucinations): none reported Perception (Other): none reported Cognition (Impairment of): none reported Cognition(Intelligence Est.): average Oriented: Awake, Alert, Oriented times three Insight: fair Judgment: Fair Psychosis: Denies DIAGNOSES: Depression unspecified R/o substance induce mood d/o secondary alcohol alcohol use d/O ASSESSMENT:Pt seen and states that her mood is "fine" today and she appears euthymic and less anxious, talking with her roommate. States she slept well last night. Feels she is tolerating her zoloft she started yesterday and it waiting for it to become beneficial to her mood. She is attending groups and finding them helpful. She denies SI/HI, hallucinations, delusions. Pt feels safe here. MANAGEMENT PLAN: dc planning tomorrow zoloft 25mg daily vistaril 10mg q4hr prn anxiety TIME SPENT: 30 minutes. Vital Signs Vital Signs Date Time Temp Pulse Resp B/P (MAP) Pulse Ox O2 Delivery O2 Flow Rate FiO2 12/22/19 07:04 70 108/53 12/22/19 06:18 99.3 16 12/21/19 16:07 97 Room Air Current Medications Current Medications Medications (Trade) Dose Ordered Sig/Milan Route PRN Reason Start Time Stop Time Status Last Admin Dose Admin Acetaminophen (Tylenol Tab) 650 mg Q6HP PRN PO HEADACHE or DISCOMFORT 12/20/19 21:15 Al Hydrox/Mg Hydrox/Simethicone (Mylanta) 30 ml Q4HP PRN PO HEARTBURN/INDIGESTION 12/20/19 21:15 Folic Acid (Folic Acid) 1 mg DAILY PO 12/21/19 09:00 12/22/19 09:04 Home Med (Med Rec Complete!) ASDIRECTED XX 12/20/19 22:00 12/20/19 22:00 DC Hydroxyzine HCl (Atarax) 10 mg Q4HP PRN PO ANXIETY/AGITATION 12/21/19 09:30 Lorazepam (Ativan) 2 mg ASDIRECTED PRN PO SEE PROTOCOL 12/21/19 10:45 Magnesium Hydroxide (Milk Of Magnesia) 30 ml DAILYPRN PRN PO CONSTIPATION 12/20/19 21:15 Multivitamins (Theragram-M) 1 tab DAILY PO 12/21/19 09:00 12/22/19 08:51 Phenazopyridine HCl (Pyridium) 100 mg TID PRN PO PAIN 12/21/19 10:45 Ramelteon (Rozerem) 8 mg QHS PO 12/21/19 21:00 12/21/19 21:00 Sertraline HCl (Zoloft) 25 mg DAILY PO 12/22/19 09:00 12/22/19 08:52 Thiamine HCl (Thiamine HCl) 100 mg BID PO 12/21/19 10:44 12/23/19 21:01 12/22/19 08:51 Trazodone HCl (Desyrel) 50 mg QHSP PRN PO INSOMNIA 12/20/19 21:15 12/21/19 21:00 Allergies Coded Allergies: Penicillins (Verified Allergy, Unknown, rash as a child, 11/19/19) ERLINDA MARSH DO Dec 22, 2019 9:17 am
--- NOTE | 2019-12-22 10:51 | IPNPDOC ---
Text Note Date of Service The patient was seen on 12/22/19. NOTE Time of service 8 AM S The patient denies having any acute complaints this morning. She also denies having cough, shortness of breath, fever, or chest pain. O GEN: well-nourished / well developed/ NAD INTEGUMENT: not flushed/ has multiple tattoos on her lower arms HEENT: NCAT / lips acyanotic /mucus membranes moist and pink CVS: RRR/NMR LUNGS: lungs are clear to auscultation bilaterally on room air MSK/EXTREMITIES: Gait is normal without walking aids NEURO: CN 2-12 are grossly intact / speech is not dysarthric PSYCH: alert and oriented to person place and time/ able to understand and follow all commands A&P Ms. Wheeler is a 19-year-old with a history of depression and alcohol abuse who was admitted to [facility] for management of suicidal ideation; we were consulted for medical comanagement. 1. Depression with suicidal ideation - plan per 2. Recurrent UTIs - c/w Pyridium 3. Insomnia? - Rozerem when necessary 5. Alcohol abuse - Ativan, thiamine, multivitamin and folic acid per CIWA protocol 6. Elevated blood pressure. Possibly due to alcohol withdrawal. - monitor vitals DVT PROPHYLAXIS: n/a because she is ambulatory Thank you for consulting us. We will sign off VS,Fishbone, I+O VS, Fishbone, I+O Vital Signs Date Time Temp Pulse Resp B/P (MAP) Pulse Ox O2 Delivery O2 Flow Rate FiO2 12/22/19 09:19 Room Air 12/22/19 07:04 70 108/53 12/22/19 06:18 99.3 16 12/21/19 16:07 97 DISHA BALLESTEROS MD Dec 22, 2019 10:51
[2019-12-22 16:00] VITALS: BP 129/72
[2019-12-22] MEDS: RAMELTEON 8 MG TAB (ROZEREM) PO SCH (20:30)
[2019-12-22] MEDS: traZODone 50 MG TAB PO PRN (20:53)
[2019-12-23 06:29] VITALS: BP 144/84
[2019-12-23 07:44] VITALS: BP 144/84
[2019-12-23] MEDS ORDERED: SERT25TA21 PO (08:14)
[2019-12-23] MEDS ORDERED: HYDR-643 PO (08:14)
[2019-12-23] MEDS ORDERED: TRAZ-252 PO (08:14)
--- NOTE | 2019-12-23 08:14 | MHDSPDOC ---
[facility] Discharge Summary Discharge Summary DATE OF ADMISSION: Dec 20, 2019 at 9:08 pm DATE OF DISCHARGE: Dec 23, 2019 DISCHARGE DIAGNOSES: Depression unspecified R/o substance induce mood d/o secondary alcohol alcohol use d/O REASON FOR ADMISSION: Patient is a 19 -year-old , AD, female, with a history of depression and anxiety admitted to [facility] 11/20/2019 for SI who brought to ED by her due to pt endorsing fleeting suicidal thoughts and no plan. Per ED , pt endorsed feeling emotional overwhelmed cause her to have thoughts of suicide with no plan due to being bored at home with nothing to do due to COVID19 pandemic. She did state that even though she doesn't like her job in the [employer] and wants to get out that things have been going well at work for the past month. Pt endorsed avolition and anhedonia in the ED. Pt seen and states she here b/c she was having thoughts of harming herself and binge drinking alcohol withdrawal. States she feels "alright" today but states when she has anxious and depressive thoughts. States she's unsure if her lexapro is beneficial or not. States she had been on zoloft for roughly a week in the past and is willing to try it again and see if it's more beneficial then her lexapro. States she doesn't like her job in the and that it "contributes" to her depressive thoughts. Denies SI/HI, hallucinations, delusions today. Feels safe here. CONSULTANTS INVOLVED: none TREATMENT AND PROGRESS ON THE UNIT : Pt was admitted to [facility], seen for psychiatric assessment and her lexaprox was d/c as she didn't find it beneficial and she was started on zoloft 25mg daily for mood and anxiety. She was provided vistaril 10mg q6hr prn anxiety and trazodone 50mg qhs prn insomnia. Pt found her medications beneficial and tolerated them well. She attended groups daily during her stay. Her symptoms improved with treatment. On day of discharge she denied depression, anxiety, insomnia, SI/HI, hallucinations, delusions. She was discharged home with her Kristina with follow-up at [facility]. She felt safe for discharge. DISCHARGE ASSESSMENT: Pt seen and states that her mood is "good" today and that she's looking forward to going home to her with her Kristina today. She appears euthymic and full range. States she slept well last night. Feels she is tolerating her zoloft and that it's beneficial to her mood. She is attending groups and finding them helpful. She denies depression, anxiety, insomnia, SI/HI, hallucinations, delusions. Pt feels safe to d/c home with her Kristina today MENTAL STATUS EXAMINATION ON DISCHARGE: General Appearance: well groomed, appears stated age, hospital scrubs/clothing Build: average Demeanor: average Eye Contact: average Activity: average Behavior: cooperative Speech: clear, spontaneous, reg/rate,rhythm,volume Mood: euthymic Mood "good" Affect: full, appropriate Thought Process: logical/linear, intact Thought Content (Delusions): none reported, denies SI, HI, AVH Thought Content (Other): none reported, appropriate Thought Content (Aggressive): none reported Perception (Hallucinations): none reported Perception (Other): none reported Cognition (Impairment of): none reported Cognition(Intelligence Est.): average Oriented: Awake, Alert, Oriented times three Insight: good Judgment: good Psychosis: Denies MEDICATIONS ON DISCHARGE: zoloft 25mg daily vistaril 25mg tid prn anxiety trazodone 50mg qhs prn insomnia PLAN/FOLLOWUP ARRANGEMENTS: D/c home with her Kristina with follow-up at [facility]. The amount of time spent in the coordination of care for this patient was approximately 30 minutes. Vital Signs/I&Os Vital Signs Date Time Temp Pulse Resp B/P (MAP) Pulse Ox O2 Delivery O2 Flow Rate FiO2 12/23/19 07:44 74 144/84 12/23/19 06:29 97.9 18 12/22/19 09:19 Room Air 12/21/19 16:07 97 Medications Scheduled Etonogestrel (Nexplanon) 68 Mg Imp, 68 MG SC ASDIRECTED, (Reported) IMPLANTED IN JANUARY 2019 Methenamine Hippurate (Methenamine Hippurate) 1 Gm Tablet, 1 GM PO BID, (Reported) Sertraline HCl (Sertraline HCl) 25 Mg Tablet, 25 MG PO DAILY for mood, #10 Scheduled PRN Hydroxyzine HCl (Hydroxyzine HCl) 10 Mg Tablet, 10 MG PO TIDP PRN for ANXIETY/AGITATION, #30 Phenazopyridine HCl (Phenazopyridine HCl) 100 Mg Tablet, 100 MG PO TID PRN for PAIN, (Reported) Trazodone HCl (Trazodone HCl) 50 Mg Tablet, 50 MG PO QHSP PRN for INSOMNIA, #10 Allergies Coded Allergies: Penicillins (Verified Allergy, Unknown, rash as a child, 11/19/19) ERLINDA MARSH DO Dec 23, 2019 8:14 am
[2019-12-23] MEDS ORDERED: HYDR-3363 PO (08:38)
[2019-12-23] MEDS: FOLIC ACID 1 MG TAB PO SCH (09:22)
[2019-12-23] MEDS: THIAMINE 100 MG TAB PO SCH (09:23)
[2019-12-23] MEDS: SERTRALINE HCL 25 MG TABLET PO SCH (09:23)
[2019-12-23] MEDS: MULTIVITAMINS/MINERALS THERAP 1 TAB PO SCH (09:23)
== END 2019-12-23 11:23 | disposition home or self-care (01) | DRG 881 ==
LOC: M ED 17:55 → M ED INP 21:08 → M PSY 23:58
PROVIDERS: ADMIT Psychiatry & Neurology Psychiatry; ATTEND Psychiatry & Neurology Psychiatry
DX: F32.9 Major depressive disorder, single episode, unspecified (principal); F10.14 Alcohol abuse with alcohol-induced mood disorder; N39.0 Urinary tract infection, site not specified; F41.9 Anxiety disorder, unspecified; R45.84 Anhedonia; Z79.899 Other long term (current) drug therapy; Z88.0 Allergy status to penicillin; G47.00 Insomnia, unspecified; R03.0 Elevated blood-pressure reading, without diagnosis of hypertension

== ENCOUNTER 2019-12-24 12:23 | Emergency (ER) | payer OTHER ==
[~2019-12-24] VITALS: Ht 157.5 cm; Wt 62.7 kg
[~2019-12-24 12:23] MED LIST changes: +HYDR-3363 PO; +HYDR-643 PO; +LEXA1TAB PO; +METH-855 PO; +PHEN-500 PO; +SERT25TA21 PO; +TRAZ-252 PO
[2019-12-24 12:52] LABS: HEMATOCRIT 41.3 % (36.0-47.0); HEMOGLOBIN 13.4 g/dl (12.0-15.5); MEAN CORPUSCULAR HEMOGLOBIN 28.8 pg (27.0-33.0); MEAN CORPUSCULAR HGB CONC 32.4 g/dl (32.0-36.5); MEAN CORPUSCULAR VOLUME 88.8 fl (80.0-96.0); PLATELET COUNT, AUTOMATED 262 10^3/uL (150-450); RED BLOOD COUNT 4.65 10^6/uL (4.00-5.40); WHITE BLOOD COUNT 6.6 10^3/uL (4.0-10.0)
[2019-12-24 13:24] LABS: AMPHETAMINES LEVEL URINE NEGATIVE (NEGATIVE); BARBITURATES URINE NEGATIVE (NEGATIVE); BENZODIAZEPINES URINE NEGATIVE (NEGATIVE); CANNABINOIDS URINE NEGATIVE (NEGATIVE); COCAINE METABOLITE URINE NEGATIVE (NEGATIVE); METHADONE URINE NEGATIVE (NEGATIVE); OPIATES URINE NEGATIVE (NEGATIVE); PHENCYCLIDINE URINE NEGATIVE (NEGATIVE)
[2019-12-24 13:37] LABS: ALBUMIN 4.2 GM/DL (3.2-5.2); ALT/SGPT 18 U/L (12-78); BILIRUBIN,DIRECT 0.2 MG/DL (0.0-0.2); BILIRUBIN,TOTAL 0.6 MG/DL (0.2-1.0); BLOOD UREA NITROGEN 8 MG/DL (7-18); CALCIUM LEVEL 9.1 MG/DL (8.5-10.1); CARBON DIOXIDE LEVEL 26 MEQ/L (21-32); CHLORIDE LEVEL 103 MEQ/L (98-107); CREATININE FOR GFR 0.88 MG/DL (0.55-1.30); ETHYL ALCOHOL (ETHANOL) 0.003 % (0.000-0.010); GLOMERULAR FILTRATION RATE > 60.0 (>60); GLUCOSE, FASTING 155 MG/DL (70-100); POTASSIUM SERUM 3.5 MEQ/L (3.5-5.1); SALICYLATE LEVEL < 1.7 MG/DL (5.0-30.0); SODIUM LEVEL 137 MEQ/L (136-145); THYROID STIMULATING HORMONE 0.701 uIU/ML (0.358-3.740); TOTAL PROTEIN 8.2 GM/DL (6.4-8.2)
[2019-12-24 13:38] LABS: ACETAMINOPHEN LEVEL < 2.0 UG/ML (10.0-30.0)
[2019-12-24 13:42] LABS: HCG, SERUM QUALITATIVE NEGATIVE (NEGATIVE)
[2019-12-24 15:33] VITALS: BP 146/84
== END 2019-12-24 15:34 | disposition home or self-care (01) ==
LOC: M ED 12:23
DX: R45.851 Suicidal ideations (principal); F43.20 Adjustment disorder, unspecified; F33.9 Major depressive disorder, recurrent, unspecified; Z79.899 Other long term (current) drug therapy; Z79.3 Long term (current) use of hormonal contraceptives; F17.210 Nicotine dependence, cigarettes, uncomplicated
CPT/HCPCS: 36415; 80048; 80076; 80307; 84443; 84703; 85027; 99284; G0480

== ENCOUNTER → 2020-01-18 | Outpatient (REF) | payer OTHER, BC ==
[2020-01-18 16:40] LABS: APPEARANCE, URINE MANUAL CLEAR (CLEAR); COLOR, URINE MANUAL ORANGE (YELLOW)
[2020-01-18 16:42] LABS: PROTEIN, URINE MANUAL NEGATIVE (NEGATIVE)
[2020-01-18 16:43] LABS: BILIRUBIN, URINE MANUAL NEGATIVE (NEGATIVE); BLOOD URINE MANUAL NEGATIVE (NEGATIVE); GLUCOSE, URINE (UA) MANUAL NEGATIVE (NEGATIVE); KETONE, URINE MANUAL NEGATIVE (NEGATIVE); LEUKOCYTE ESTERASE, URINE MAN POSITIVE (NEGATIVE); NITRITE, URINE MANUAL POSITIVE (NEGATIVE); UROBILINOGEN, URINE MANUAL NORMAL (NORMAL)
[2020-01-18 16:51] LABS: WBC, URINE 30-40 /hpf (0-3)
[2020-01-18 16:52] LABS: BACTERIA, URINE SMALL AMOUNT; HYALINE CAST, URINE NONE SEEN /lpf (0-1); SQUAMOUS EPITHELIAL CELL URINE SMALL AMOUNT /hpf (SMALL AMT)
== END ==
LOC: M LABSMT 11:46
PROVIDERS: ATTEND Nurse Practitioner Family
DX: N39.0 Urinary tract infection, site not specified (principal)

== ENCOUNTER → 2020-01-25 | Outpatient (REF) | payer OTHER, BC ==
[2020-01-25 16:38] LABS: BACTERIA, URINE AUTO NEGATIVE (NEGATIVE); RBC, URINE AUTO 2 /HPF (0-3); SQUAMOUS EPITHELIAL CELL UR AU 1 /HPF (0-6); WBC, URINE AUTO 1 /HPF (0-3)
== END ==
LOC: M SFHCLERA 14:07
PROVIDERS: ATTEND Nurse Practitioner Family
DX: R30.0 Dysuria (principal)

== ENCOUNTER 2020-05-02 14:55 | Inpatient (IN) | payer OTHER, BC ==
[2020-05-03] MEDS ORDERED: SERTRALINE HCL 50 MG TAB ONE (13:12)
[2020-05-03] MEDS ORDERED: DOXYCYCLINE HYCLATE 100MG TABLET ONE (13:12)
[2020-05-03] MEDS ORDERED: buPROPion **XL** TABLET 150MG (WELLBUTRIN XL) ONE (14:18)
[2020-05-03] MEDS ORDERED: traZODone 100 MG TAB ONE (22:18)
[2020-05-03] MEDS ORDERED: traZODone 50 MG TAB ONE (22:18)
[2020-05-31 11:25] LABS: BASO % 0.4 % (0.0-1.0); HEMATOCRIT 37.6 % (36.0-47.0); HEMOGLOBIN 12.5 g/dl (12.0-15.5); LYMPH # 1.7 10^3/uL (1.5-5.0); LYMPH % 35.3 % (24.0-44.0); MEAN CORPUSCULAR HEMOGLOBIN 28.7 pg (27.0-33.0); MEAN CORPUSCULAR HGB CONC 33.2 g/dl (32.0-36.5); MEAN CORPUSCULAR VOLUME 86.4 fl (80.0-96.0); MONO # 0.4 10^3/uL (0.0-0.8); MONO % 7.9 % (0.0-5.0); NEUTROPHILS # 2.7 10^3/uL (1.5-8.5); NEUTROPHILS % 56.2 % (36.0-66.0); PLATELET COUNT, AUTOMATED 254 10^3/uL (150-450); RED BLOOD COUNT 4.35 10^6/uL (4.00-5.40); WHITE BLOOD COUNT 4.8 10^3/uL (4.0-10.0)
[2020-06-16 18:27] LABS: ACETAMINOPHEN LEVEL < 2.0 UG/ML (10.0-30.0); ALBUMIN 4.2 GM/DL (3.2-5.2); ALT/SGPT 18 U/L (12-78); AMPHETAMINES LEVEL URINE NEGATIVE (NEGATIVE); BARBITURATES URINE NEGATIVE (NEGATIVE); BENZODIAZEPINES URINE NEGATIVE (NEGATIVE); BILIRUBIN,DIRECT 0.2 MG/DL (0.0-0.2); BILIRUBIN,TOTAL 0.5 MG/DL (0.2-1.0); BLOOD UREA NITROGEN 7 MG/DL (7-18); CALCIUM LEVEL 9.4 MG/DL (8.5-10.1); CANNABINOIDS URINE NEGATIVE (NEGATIVE); CARBON DIOXIDE LEVEL 28 MEQ/L (21-32); CHLORIDE LEVEL 107 MEQ/L (98-107); COCAINE METABOLITE URINE NEGATIVE (NEGATIVE); CREATININE FOR GFR 0.77 MG/DL (0.55-1.30); ETHYL ALCOHOL (ETHANOL) < 0.003 % (0.000-0.010); FREE T4 1.05 NG/DL (0.76-1.46); GLOMERULAR FILTRATION RATE > 60.0 (>60); GLUCOSE, FASTING 86 MG/DL (70-100); METHADONE URINE NEGATIVE (NEGATIVE); OPIATES URINE NEGATIVE (NEGATIVE); PHENCYCLIDINE URINE NEGATIVE (NEGATIVE); SALICYLATE LEVEL < 1.7 MG/DL (5.0-30.0); SODIUM LEVEL 141 MEQ/L (136-145); THYROID STIMULATING HORMONE 0.687 uIU/ML (0.358-3.740); TOTAL PROTEIN 7.6 GM/DL (6.4-8.2)
[2020-06-16 18:41] LABS: HCG, SERUM QUALITATIVE NEGATIVE (NEGATIVE)
[2020-07-25 18:17] LABS: AMPHETAMINES LEVEL URINE NEGATIVE (NEGATIVE)
[2020-07-25 18:18] LABS: BARBITURATES URINE NEGATIVE (NEGATIVE); BENZODIAZEPINES URINE NEGATIVE (NEGATIVE); CANNABINOIDS URINE NEGATIVE (NEGATIVE); COCAINE METABOLITE URINE NEGATIVE (NEGATIVE); METHADONE URINE NEGATIVE (NEGATIVE); OPIATES URINE NEGATIVE (NEGATIVE); PHENCYCLIDINE URINE NEGATIVE (NEGATIVE)
== END 2020-05-04 11:41 | disposition home or self-care (01) | DRG 881 ==
LOC: M ED 14:55 → M PSY 17:05
PROVIDERS: ADMIT Psychiatry & Neurology Psychiatry; ATTEND Psychiatry & Neurology Psychiatry
DX: F32.9 Major depressive disorder, single episode, unspecified (principal); R45.851 Suicidal ideations

== ENCOUNTER 2020-05-09 15:40 | Emergency (ER) | payer OTHER, BC ==
[2020-06-27 20:40] LABS: BASO % 0.2 % (0.0-1.0); EOS % 0.2 % (0.0-3.0); HEMATOCRIT 38.1 % (36.0-47.0); HEMOGLOBIN 12.7 g/dl (12.0-15.5); LYMPH # 1.8 10^3/uL (1.5-5.0); LYMPH % 29.6 % (24.0-44.0); MEAN CORPUSCULAR HEMOGLOBIN 28.7 pg (27.0-33.0); MEAN CORPUSCULAR HGB CONC 33.3 g/dl (32.0-36.5); MONO # 0.4 10^3/uL (0.0-0.8); MONO % 6.3 % (0.0-5.0); NEUTROPHILS % 63.5 % (36.0-66.0); PLATELET COUNT, AUTOMATED 245 10^3/uL (150-450); RED BLOOD COUNT 4.43 10^6/uL (4.00-5.40); WHITE BLOOD COUNT 6.2 10^3/uL (4.0-10.0)
[2020-08-01 04:46] LABS: ACETAMINOPHEN LEVEL < 2.0 UG/ML (10.0-30.0); ALBUMIN 4.3 GM/DL (3.2-5.2); ALT/SGPT 17 U/L (12-78); AMPHETAMINES LEVEL URINE NEGATIVE (NEGATIVE); BARBITURATES URINE NEGATIVE (NEGATIVE); BENZODIAZEPINES URINE POSITIVE (NEGATIVE); BILIRUBIN,DIRECT 0.1 MG/DL (0.0-0.2); BILIRUBIN,TOTAL 0.4 MG/DL (0.2-1.0); BLOOD UREA NITROGEN 11 MG/DL (7-18); CALCIUM LEVEL 9.3 MG/DL (8.5-10.1); CANNABINOIDS URINE NEGATIVE (NEGATIVE); CARBON DIOXIDE LEVEL 28 MEQ/L (21-32); CHLORIDE LEVEL 105 MEQ/L (98-107); COCAINE METABOLITE URINE NEGATIVE (NEGATIVE); CREATININE FOR GFR 0.77 MG/DL (0.55-1.30); ETHYL ALCOHOL (ETHANOL) < 0.003 % (0.000-0.010); GLOMERULAR FILTRATION RATE > 60.0 (>60); GLUCOSE, FASTING 87 MG/DL (70-100); METHADONE URINE NEGATIVE (NEGATIVE); OPIATES URINE NEGATIVE (NEGATIVE); PHENCYCLIDINE URINE NEGATIVE (NEGATIVE); POTASSIUM SERUM 3.5 MEQ/L (3.5-5.1); SALICYLATE LEVEL < 1.7 MG/DL (5.0-30.0); SODIUM LEVEL 138 MEQ/L (136-145)
[2020-08-01 04:52] LABS: HCG, SERUM QUALITATIVE NEGATIVE (NEGATIVE)
== END 2020-05-09 16:54 | disposition home or self-care (01) ==
LOC: M ED 15:40
DX: Z04.6 Encounter for general psychiatric examination, requested by authority (principal); F33.9 Major depressive disorder, recurrent, unspecified; Z88.0 Allergy status to penicillin; Z79.52 Long term (current) use of systemic steroids; Z79.899 Other long term (current) drug therapy
CPT/HCPCS: 36415; 80048; 80076; 80307; 84703; 85025; 99284; G0480